=== PATIENT | male | born 1970 | race African-American/Black ===

== ENCOUNTER 2021-08-03 13:27 | Outpatient (CLI) | payer BC | END 2021-08-03 13:28 | disposition home or self-care (01) | LOC: CSHEKG 13:27 | PROVIDERS: ATTEND Urology | DX: Z01.818 Encounter for other preprocedural examination (principal); C61 Malignant neoplasm of prostate | CPT/HCPCS: 93005; 93010 ==

== ENCOUNTER 2024-05-19 15:02 | Outpatient (CLI) | payer OTHER | END 2024-05-19 15:03 | disposition home or self-care (01) | LOC: CSHCT 15:02 | PROVIDERS: ATTEND Family Medicine | DX: R20.0 Anesthesia of skin (principal); Q74.8 Other specified congenital malformations of limb(s); M67.40 Ganglion, unspecified site ==

== ENCOUNTER 2024-09-10 14:28 | Outpatient (CLI) | payer OTHER ==
[2024-09-10 15:37] LABS: Anion Gap 11 mmol/L (10-20); BUN (Urea Nitrogen) 12 mg/dL (8.4-25.7); Calc. Creatinine Clearance 0 mL/min (70-130); Calcium 9.3 mg/dL (7.8-10.44); Carbon Dioxide 27 mmol/L (22-29); Chloride 107 mmol/L (98-107); Estimated GFR 87; Glucose 94 mg/dL (70-105); Sodium 141 mmol/L (136-145)
[2024-09-10 15:49] LABS: #Basophils Less than 0.03 10x3/uL (0.0-0.2); #Eosinophils 0.13 10x3/uL (0.0-0.5); #Monocytes 0.42 10x3/uL (0.0-1.1); #Neutrophils 1.87 10x3/uL (1.5-8.4); %Basophils 0.2 % (0.0-2.0); %Eosinophils 2.4 % (0.0-6.0); %Lymphocytes 55.3 % (18.0-47.0); %Monocytes 7.7 % (0.0-10.0); %Neutrophils 34.2 % (40.0-75.0); Hematocrit 46.5 % (38.8-50.0); Hemoglobin 15.1 g/dL (13.5-17.5); Mean Corpuscular HGB CONC 32.5 g/dL (32.0-36.0); Mean Corpuscular Hemoglobin 29.3 pg (27.0-33.0); Mean Corpuscular Volume 90.1 fL (81.2-95.1); Mean Platelet Volume 10.4 fL (7.4-10.4); Platelet Count 179 10x3/uL (150-450); RBC Distribution Width 12.7 % (11.5-14.5); Red Blood Cell (RBC) Count 5.16 10x6/uL (4.32-5.72); White Blood Cell (WBC) Count 5.46 10x3/uL (3.5-10.5)
== END 2024-09-10 14:29 | disposition home or self-care (01) ==
LOC: CSHLAB 14:28
PROVIDERS: ATTEND Specialist
DX: Z01.812 Encounter for preprocedural laboratory examination (principal); K43.9 Ventral hernia without obstruction or gangrene
CPT/HCPCS: 80048; 85025

== ENCOUNTER 2024-09-11 06:00 | Day surgery (SDC) | payer OTHER ==
[2024-09-10 14:53] VITALS: BMI 28.8
[2024-09-11] MEDS ORDERED: Ketorolac Tromethamine 30 MG (1 mL) VIAL ONE (06:27)
[2024-09-11] MEDS ORDERED: Acetaminophen 500 MG TAB ONE (06:27)
[2024-09-11] MEDS ORDERED: CEFAZOLIN 2 GM VIAL ONE (06:50)
[2024-09-11] MEDS ORDERED: Bupivacaine/Epinephrine 0.25% 30 ML VIAL ONE (06:50)
[2024-09-11] MEDS ORDERED: Fentanyl 100 MCG/2 ML VIAL ONE (06:53)
[2024-09-11] MEDS ORDERED: Midazolam HCl 2 mg/2 ml Vial ONE (06:53)
[2024-09-11] MEDS ORDERED: PROPOFOL 20 ML ONE (06:53)
[2024-09-11] MEDS ORDERED: Ondansetron PF 4 MG/2 ML Vial ONE (06:54)
[2024-09-11] MEDS ORDERED: Lidocaine 1% PF 5 ML VIAL ONE (06:54)
[2024-09-11] MEDS ORDERED: Rocuronium Bromide 10 MG/ML (10ML VIAL) ONE (06:54)
== END 2024-09-11 09:45 | disposition home or self-care (01) ==
LOC: CSHSDC 06:00
PROVIDERS: ATTEND Specialist
PROC: 0WUF0JZ Supplement Abdominal Wall with Synthetic Substitute, Open Approach (ICD-10-PCS; principal; 2024-09-11)
DX: K43.9 Ventral hernia without obstruction or gangrene (principal); Z85.46 Personal history of malignant neoplasm of prostate; Z90.79 Acquired absence of other genital organ(s); Z98.890 Other specified postprocedural states; Z79.899 Other long term (current) drug therapy
CPT/HCPCS: C1781; J1885; J2250; J2405; J2704; J3010